=== PATIENT | male | born 1960 | race Caucasian/White ===

== ENCOUNTER → 2016-07-18 | Outpatient (CLI) | payer OTHER, MEDICARE | LOC: PCVCCLINIC 14:30 | PROVIDERS: ATTEND Internal Medicine | DX: I48.0 Paroxysmal atrial fibrillation (principal); I10 Essential (primary) hypertension; E78.5 Hyperlipidemia, unspecified | CPT/HCPCS: 80061; 93005; G0463 ==

== ENCOUNTER → 2017-01-30 | Outpatient (CLI) | payer OTHER | END | disposition home or self-care (01) | LOC: PCVCCLINIC 11:50 | PROVIDERS: ATTEND Internal Medicine | DX: I45.89 Other specified conduction disorders (principal); I47.1 Supraventricular tachycardia; I48.0 Paroxysmal atrial fibrillation; I10 Essential (primary) hypertension; E78.2 Mixed hyperlipidemia; Z79.82 Long term (current) use of aspirin; Z79.899 Other long term (current) drug therapy | CPT/HCPCS: 80061; 93005; G0463 ==

== ENCOUNTER → 2017-06-01 | Outpatient (CLI) | payer OTHER, MEDICARE ==
--- NOTE | 2017-06-01 16:17 | PCVCIMAG ---
APPROVED REPORT Study performed: 06/01/2017 13:57:41 EXAM: Comprehensive 2D, Doppler, and color-flow Echocardiogram Patient Location: Echo lab Room #: 2Status: routine BSA: 2.33 HR: 61 bpmBP: 150/102 mmHg Rhythm: NSR Other Information Study Quality: Technically Difficult Risk Factors: Cardiac Risk Factors: HTN, Hyperlipidemia Indications Abnormal ECG Hypertension/HDD HISTORY OF A FIB WITH ABLATION X 3, PSVT 2D Dimensions IVSd: 8.00 (7-11mm)LVOT Diam: 21.33 (18-24mm) LVDd: 50.57 mm PWd: 9.01 (7-11mm)Ascending Ao: 38.15 (22-36mm) LVDs: 29.68 (25-40mm) Left Atrium: 43.79 (27-40mm) Aortic Root: 34.81 mm LV Single Plane 4CH: 57.36 % LV Single Plane 2CH: 65.45 %[place]'s LVEF: 61.40 % Biplane EF: 61.3 % Volumes Left Atrial Volume (Systole) Single Plane 4CH: 38.30 mLSingle Plane 2CH: 42.81 mL Biplane LA Volume: 44.00 mLLA ESV Index: 19.00 mL/m2 Aortic Valve AoV Peak Ace.: 1.47 m/s AO Peak Gr.: 8.74 mmHgLVOT Max P.77 mmHg LVOT Max V: 1.22 m/s TANMAY Vmax: 2.97 cm2 Mitral Valve E/A Ratio: 3.4 MV Decel. Time: 229.44 ms MV E Max Ace.: 0.96 m/s MV A Ace.: 0.28 m/s IVRT: 65.74 ms TDI E/Lateral E': 8.00E/Medial E': 12.00 Medial E' Ace.: 0.08 m/s Lateral E' Ace.: 0.12 m/s Pulmonary Valve PV Peak Ace.: 0.87 m/sPV Peak Gr.: 3.03 mmHg Pulmonary Vein P Vein S: 0.31 m/sP Vein A: 0.27 m/s P Vein D: 0.86 m/sP Vein A Dur.: 83.0 msec P Vein S/D Ratio: 0.36 Tricuspid Valve TR Peak Ace.: 1.77 m/s TR Peak Gr.: 12.49 mmHg TV Vmax: 0.63 m/sPA Pressure: 19.00 mmHg Left Ventricle The left ventricle is normal size. There is normal LV segmental wall motion. There is normal left ventricular wall thickness. Left ventricular systolic function is normal. The left ventricular ejection fraction is within the normal range. LVEF is 60-65%. The left ventricular diastolic function is normal. Right Ventricle The right ventricle is normal size. The right ventricular systolic function is normal. Atria Left atrium is mildly dilated. The right atrium size is normal. Aortic Valve The aortic valve is normal in structure. No aortic regurgitation is present. There is no aortic valvular stenosis. Mitral Valve The mitral valve is normal in structure. There is no mitral valve regurgitation noted. No evidence of mitral valve stenosis. Tricuspid Valve The tricuspid valve is normal in structure. Trace to mild tricuspid regurgitation with a PA pressure of 20mmHg Pulmonic Valve The pulmonary valve is normal in structure. There is no pulmonic valvular regurgitation. Great Vessels The aortic root is normal in size. The ascending aorta is normal in size. IVC is normal in size and collapses with >50% inspiration Pericardium There is no pericardial effusion. There is no pleural effusion. <Conclusion> Left ventricular systolic function is normal. There is normal LV segmental wall motion. LVEF 60-65%. The aortic valve is normal in structure. No aortic valvular stenosis or insufficiency. The mitral valve is normal in structure. No mitral valve regurgitation noted. Pulmonary artery artery pressure of 20mmHg There is no pericardial effusion.
== END | disposition home or self-care (01) ==
LOC: PCVCIMAG 14:05
PROVIDERS: ATTEND Internal Medicine
DX: I48.0 Paroxysmal atrial fibrillation (principal); I47.1 Supraventricular tachycardia; I10 Essential (primary) hypertension; E78.2 Mixed hyperlipidemia; R94.31 Abnormal electrocardiogram [ECG] [EKG]; Z79.899 Other long term (current) drug therapy; Z79.82 Long term (current) use of aspirin
CPT/HCPCS: 80061; 93005; 93306; G0463

== ENCOUNTER 2017-08-16 08:16 | Emergency (ER) | payer OTHER, MEDICARE ==
[2017-08-16] MEDS: DEXAMETHASONE SOD PHOS 20 MG/5 ML VIAL. IM ×2 (08:44)
== END 2017-08-16 09:06 | disposition home or self-care (01) ==
LOC: ER 08:16
DX: M54.42 Lumbago with sciatica, left side (principal); I10 Essential (primary) hypertension; I48.91 Unspecified atrial fibrillation
CPT/HCPCS: 96372; 99284-25; J1100; J3360

== ENCOUNTER 2017-08-24 08:15 | Emergency (ER) | payer OTHER, MEDICARE ==
[2017-08-24] MEDS: IV NORMAL SALINE 500ML BAG 500 ML IV ×4 (09:00→10:06)
[2017-08-24 09:10] LABS: ADD MAN DIFF? NO
[2017-08-24 09:15] LABS: BASO # 0.1 x10^3/uL (0.0-0.2); BASO % 1 % (0-3); EOS # 0.2 x10^3/uL (0.0-0.7); EOS % 2 % (0-3); HEMATOCRIT 44.4 % (39.0-53.0); HEMOGLOBIN 14.8 g/dL (13.0-17.5); LYMPH # 2.5 x10^3/uL (1.0-4.8); LYMPH % 24 % (24-48); MEAN CORPUSCULAR HEMOGLOBIN 28 pg (25-35); MEAN CORPUSCULAR HGB CONC 33 g/dL (31-37); MEAN CORPUSCULAR VOLUME 85 fL (79-100); MONO % 9 % (0-9); NEUT # 6.7 x10^3uL (1.8-7.7); NEUT % 64 % (31-73); PLATELET COUNT 419 x10^3/uL (140-400); RED BLOOD COUNT 5.26 x10^6/uL (4.30-5.70); RED CELL DISTRIBUTION WIDTH 15.1 % (11.5-14.5); WHITE BLOOD COUNT 10.4 x10^3/uL (4.0-11.0)
[2017-08-24 09:38] LABS: ANION GAP 8 (6-14); BLOOD UREA NITROGEN 23 mg/dL (8-26); CALCIUM 8.9 mg/dL (8.5-10.1); CARBON DIOXIDE 30 mmol/L (21-32); CHLORIDE 102 mmol/L (98-107); CREATININE 1.1 mg/dL (0.7-1.3); GLUCOSE 95 mg/dL (70-99); POTASSIUM 4.4 mmol/L (3.5-5.1); SODIUM 140 mmol/L (136-145)
[2017-08-24 09:44] LABS: ALBUMIN 3.5 g/dL (3.4-5.0); ALK PHOS 105 U/L (46-116); ALT (SGPT) 26 U/L (16-63); AST (SGOT) 21 U/L (15-37); DIRECT BILIRUBIN 0.1 mg/dL (0.0-0.2); LIPASE 91 U/L (73-393); TOTAL BILIRUBIN 0.3 mg/dL (0.2-1.0); TOTAL PROTEIN 6.9 g/dL (6.4-8.2)
[2017-08-24 09:45] LABS: TROPONINI < 0.017 ng/mL (0.000-0.055)
[2017-08-24 09:47] LABS: INFLUENZA A PATIENT NEGATIVE (NEGATIVE); INFLUENZA B PATIENT NEGATIVE (NEGATIVE); OBC FLU VALID
== END 2017-08-24 10:53 | disposition home or self-care (01) ==
LOC: ER 08:15
DX: J06.9 Acute upper respiratory infection, unspecified (principal); I49.1 Atrial premature depolarization; I10 Essential (primary) hypertension; R00.0 Tachycardia, unspecified; I48.91 Unspecified atrial fibrillation
CPT/HCPCS: 36415; 71045; 80048; 80076; 83690; 84484; 85025; 87804; 87804-59; 93005; 96360; 99285-25; J7040

== ENCOUNTER → 2017-09-14 | Outpatient (CLI) | payer OTHER, MEDICARE ==
[2017-09-14 12:50] LABS: CHOLESTEROL 163 mg/dL (0-200); HDLC 39 mg/dL (40-60); LDLC 108 mg/dL (0-100); NON-HDL CHOLESTEROL 124 mg/dL (0-129); TRIGLYCERIDES 82 mg/dL (0-150); VLDLC 16 mg/dL (0-40)
[2017-09-14 12:50] LABS: MAGNESIUM 1.8 mg/dL (1.8-2.4)
[2017-09-14 12:51] LABS: CHOLESTEROL/HDL RATIO 4.2
[2017-09-14 12:58] LABS: THYROID STIM HORMONE (TSH) 6.907 uIU/mL (0.358-3.74)
[2017-09-14 13:05] LABS: PROSTATE SPECIFIC ANTIGEN 0.76 ng/mL (0.00-4.00)
== END | disposition home or self-care (01) ==
LOC: LAB 12:22
DX: Z12.5 Encounter for screening for malignant neoplasm of prostate (principal); Z13.220 Encounter for screening for lipoid disorders; I48.0 Paroxysmal atrial fibrillation; R94.6 Abnormal results of thyroid function studies
CPT/HCPCS: 36415; 80061; 83735; 84439; 84443; G0103

== ENCOUNTER → 2017-12-07 | Outpatient (CLI) | payer BC, MEDICARE | END | disposition home or self-care (01) | LOC: PCVCCLINIC 13:50 | DX: I10 Essential (primary) hypertension (principal); I48.0 Paroxysmal atrial fibrillation; I47.1 Supraventricular tachycardia; E78.5 Hyperlipidemia, unspecified; Z79.82 Long term (current) use of aspirin; Z79.899 Other long term (current) drug therapy | CPT/HCPCS: 93005; G0463 ==

== ENCOUNTER → 2018-05-16 | Outpatient (CLI) | payer OTHER ==
[2017-08-24 10:48] VITALS: BP 132/91
[~2018-05-16] MED LIST: AZIT250T6 PO; CARI350T PO; DIAZ5TAB PO; IBUP-1027 PO
--- NOTE | 2018-05-16 16:58 | PCVCIMAG ---
APPROVED REPORT Study performed: 05/16/2018 13:15:22 Exam: Stress Echocardiogram Indication: Paroxysmal A-Fib, PSVT Patient Location: Echo lab Stress Nurse: Citlali Johnston RN Status: routine Ht: 6 ft 4 in HR: 68 bpm BP: 134/94 mmHg Rhythm: NSR, Incomplete RBBB Medical History Medical History: HTN, Hyperlipidemia Procedure The patient underwent an Exercise Stress Test using the Vish Protocol. Blood pressure, heart rate, and EKG were monitored. An Echocardiogram was performed by mine technician in four stages in quad fashion. At peak stress, four selected images were obtained and placed side by side with resting images for comparison. Stress Test Details Stress Test: Exercise stress testing was performed using a Vish protocol. HR Resting HR: 68 bpmMax Heart Rate (APMHR): 162 bpm Max HR Achieved: 139 bpmTarget HR (85% APMHR): 137 bpm % of APMHR: 85 Recovery HR: 81 bpm HR response to stress: Normal HR response to stress BP Resting BP: 134/94 mmHg Max BP: 164/80 mmHg Recovery BP: 142/84 mmHg ECG Resting ECG: Sinus Rhythm, Incomplete RBBB Stress ECG: Sinus Rhythm ST Change: Normal Maximum ST Deviation: 0 mm Arrhythmia: VPC's Recovery ECG: Sinus Rhythm, Incomplete RBBB Recovery ST Change: Normal Recovery ST Deviation: 0 mm Recovery Arrhythmia: None Clinical Reason for Termination: Maximal effort Exercise duration: 9 min 02 sec Highest Stage Achieved: Stage 3: 3.4 mph at 14% grade. Exercise capacity: 10.40 METs Overall Exercise Capacity for Age: Good Angina Score: None Stage 3 was held due to patient's inabilty to go higher or faster secondary to back laminectomy (2012) and gait instability. Maximum heart rate was 85%. Stress ECG Conclusion ECG: Non-ischemic Clinical: Non-ischemic Ceballos Treadmill Score is 9.0 which is Low risk. Pre-Stress Echo The resting Echocardiogram showed normal left ventricular contractility with an estimated Ejection Fraction of about >55%. Normal wall motion in all segments on baseline images. Post-Stress Echo The stress Echocardiogram showed normal left ventricular contractility with an estimated Ejection Fraction of about 60-65%. Normal augmentation of wall motion in all segments on post stress images. Clinical No clinical or ECG evidence for ischemia. Conclusion Clinical Response: Non-ischemic Exercise Capacity: Average Stress ECG Response: Non-ischemic Stress Echo Images: Non-ischemic The left ventricle is normal in size and wall thickness in both the rest and stress images. Irregular bordered echodense 1.6cm mass at LV apex Normal stress echocardiogram with maximal exercise stress. Other Information Study Quality: Adequate <Conclusion> The left ventricle is normal in size and wall thickness in both the rest and stress images. Irregular bordered echodense 1.6cm mass at LV apex Normal stress echocardiogram with maximal exercise stress.
== END | disposition home or self-care (01) ==
LOC: PCVCIMAG 14:35
PROVIDERS: ATTEND Internal Medicine
DX: I10 Essential (primary) hypertension (principal); I48.0 Paroxysmal atrial fibrillation; I47.1 Supraventricular tachycardia; I15.9 Secondary hypertension, unspecified; E78.5 Hyperlipidemia, unspecified
CPT/HCPCS: 93325; 93351

== ENCOUNTER → 2018-05-17 | Outpatient (CLI) | payer OTHER ==
[2017-08-24 10:48] VITALS: BP 132/91
[2018-05-17 17:15] LABS: FREE T4 0.98 ng/dL (0.76-1.46); THYROID STIM HORMONE (TSH) 5.035 uIU/mL (0.358-3.74)
== END | disposition home or self-care (01) ==
LOC: LAB 12:24
PROVIDERS: ATTEND Family Medicine
DX: R94.6 Abnormal results of thyroid function studies (principal)
CPT/HCPCS: 36415; 84439; 84443

== ENCOUNTER → 2018-05-22 | Outpatient (CLI) | payer OTHER, MEDICARE ==
[2017-08-24 10:48] VITALS: BP 132/91
--- NOTE | 2018-05-22 17:41 | PCVCIMAG ---
APPROVED REPORT Study performed: 05/22/2018 15:23:52 EXAM: Comprehensive 2D, Doppler, and color-flow Echocardiogram Patient Location: Echo lab Room #: 2Status: routine BSA: 2.34 HR: 73 bpm Rhythm: NSR Other Information Study Quality: Good Risk Factors: Cardiac Risk Factors: HTN, Hyperlipidemia Indications Atrial Fibrillation Dyspnea Hypertension/HDD 2D Dimensions IVSd: 9.89 (7-11mm)LVOT Diam: 22.26 (18-24mm) LVDd: 50.25 mm PWd: 9.89 (7-11mm)Ascending Ao: 38.44 (22-36mm) LVDs: 31.55 (25-40mm) Left Atrium: 37.82 (27-40mm) Aortic Root: 39.09 mm LV Single Plane 4CH: 60.10 % LV Single Plane 2CH: 70.48 % Biplane EF: 65.1 % Volumes Left Atrial Volume (Systole) Single Plane 4CH: 53.41 mLSingle Plane 2CH: 54.19 mL Biplane LA Volume: 57.00 mLLA ESV Index: 24.00 mL/m2 Aortic Valve AoV Peak Ace.: 1.78 m/s AO Peak Gr.: 12.74 mmHgLVOT Max P.28 mmHg LVOT Max V: 0.91 m/s TANMAY Vmax: 1.97 cm2 Mitral Valve E/A Ratio: 4.1 MV Decel. Time: 140.25 ms MV E Max Ace.: 1.12 m/s MV A Ace.: 0.27 m/s IVRT: 62.28 ms TDI E/Lateral E': 8.62E/Medial E': 11.20 Medial E' Ace.: 0.10 m/s Lateral E' Ace.: 0.13 m/s Pulmonary Valve PV Peak Ace.: 1.13 m/sPV Peak Gr.: 5.09 mmHg Pulmonary Vein P Vein S: 0.27 m/sP Vein A: 0.23 m/s P Vein D: 0.83 m/sP Vein A Dur.: 86.5 msec P Vein S/D Ratio: 0.33 Tricuspid Valve TR Peak Ace.: 1.25 m/s TR Peak Gr.: 6.27 mmHg TV Vmax: 0.77 m/sPA Pressure: 13.00 mmHg Left Ventricle The left ventricle is normal size. There is normal LV segmental wall motion. There is normal left ventricular wall thickness. The left ventricular systolic function is normal. The left ventricular ejection fraction is within the normal range. A small echogenic mass is seen on the distal septal wall near the apex. Approximately 1.6 x 2 cm, with apparent contractile function. Possible apically displaced, muscular false tendon. LVEF is 60-65%. The left ventricular diastolic function is normal. Right Ventricle The right ventricle is normal size. The right ventricular systolic function is normal. Atria The left atrium size is normal. The right atrium size is normal. Aortic Valve The aortic valve is normal in structure. No aortic regurgitation is present. There is no aortic valvular stenosis. Mitral Valve The mitral valve is normal in structure. There is no mitral valve regurgitation noted. No evidence of mitral valve stenosis. Tricuspid Valve The tricuspid valve is normal in structure. There is no tricuspid valve regurgitation noted. Pulmonic Valve The pulmonary valve is normal in structure. There is no pulmonic valvular regurgitation. Great Vessels The aortic root is normal in size. The ascending aorta is normal in size. IVC is normal in size and collapses >50% with inspiration. Pericardium There is no pericardial effusion There is no pleural effusion. <Conclusion> The left ventricular systolic function is normal. There is normal LV segmental wall motion. EF 65% A small echogenic mass is seen on the distal septal wall near the apex. Approximately 1.6 x 2 cm, with apparent contractile function. Possible apically displaced, muscular false tendon.. The aortic valve is normal in structure. No aortic regurgitation or stenosis The mitral valve is normal in structure. No mitral insufficiency There is no pericardial effusion
== END | disposition home or self-care (01) ==
LOC: PCVCIMAG 15:02
PROVIDERS: ATTEND Internal Medicine
DX: I48.0 Paroxysmal atrial fibrillation (principal)
CPT/HCPCS: 93306

== ENCOUNTER → 2018-09-30 | Outpatient (CLI) | payer OTHER, MEDICARE ==
[2017-08-24 10:48] VITALS: BP 132/91
[~2018-09-30] MED LIST changes: +IBUP-1060 PO
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
== END | disposition home or self-care (01) ==
LOC: MRI 10:34
PROVIDERS: ATTEND Orthopaedic Surgery Hand Surgery
DX: S63.112A Subluxation of metacarpophalangeal joint of left thumb, initial encounter (principal); S62.292A Other fracture of first metacarpal bone, left hand, initial encounter for closed fracture; R60.0 Localized edema; X58.XXXA Exposure to other specified factors, initial encounter; Y93.89 Activity, other specified; Y92.89 Other specified places as the place of occurrence of the external cause; Y99.8 Other external cause status
CPT/HCPCS: 73218

== ENCOUNTER 2018-10-28 20:47 | Emergency (ER) | payer OTHER, MEDICARE ==
[2017-08-24 10:48] VITALS: BP 132/91
[~2018-10-28 20:47] MED LIST changes: -IBUP-1060 PO
[2018-10-29] MEDS ORDERED: IBUP-1060 PO (08:42)
== END 2018-10-28 20:50 | disposition left against medical advice (07) ==
LOC: ER 20:47
DX: S59.902A Unspecified injury of left elbow, initial encounter (principal); Z53.21 Procedure and treatment not carried out due to patient leaving prior to being seen by health care provider; W18.39XA Other fall on same level, initial encounter; Y93.89 Activity, other specified; Y92.89 Other specified places as the place of occurrence of the external cause; Y99.8 Other external cause status

== ENCOUNTER 2018-10-29 07:08 | Emergency (ER) | payer OTHER, MEDICARE ==
[~2018-10-29] VITALS: Ht 193 cm; Wt 102.1 kg
[2018-10-29 07:13] VITALS: BP 155/92
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
[2018-10-29] MEDS ORDERED: IBUP-1060 PO (08:42)
== END 2018-10-29 08:45 | disposition home or self-care (01) ==
LOC: ER 07:08
DX: S52.125A Nondisplaced fracture of head of left radius, initial encounter for closed fracture (principal); I48.91 Unspecified atrial fibrillation; I10 Essential (primary) hypertension; Z88.8 Allergy status to other drugs, medicaments and biological substances; X50.9XXA Other and unspecified overexertion or strenuous movements or postures, initial encounter; Y93.89 Activity, other specified; Y92.89 Other specified places as the place of occurrence of the external cause; Y99.8 Other external cause status
CPT/HCPCS: 73080; 99284

== ENCOUNTER → 2018-11-01 | Outpatient (CLI) | payer OTHER, MEDICARE ==
[2018-10-29 07:13] VITALS: BP 155/92
[~2018-11-01] MED LIST changes: +IBUP-1060 PO
[2018-11-01 14:09] LABS: CREATININE 1.1 mg/dL (0.7-1.3); GFR 68.8; POTASSIUM 3.8 mmol/L (3.5-5.1)
== END | disposition home or self-care (01) ==
LOC: LAB 13:39
PROVIDERS: ATTEND Orthopaedic Surgery Hand Surgery
DX: I10 Essential (primary) hypertension (principal); E87.79 Other fluid overload; L70.9 Acne, unspecified; E87.70 Fluid overload, unspecified; I48.91 Unspecified atrial fibrillation; D53.9 Nutritional anemia, unspecified; I25.2 Old myocardial infarction; A15.0 Tuberculosis of lung; Z87.891 Personal history of nicotine dependence; Z79.01 Long term (current) use of anticoagulants
CPT/HCPCS: 36415; 80048

== ENCOUNTER → 2018-11-15 | Outpatient (CLI) | payer OTHER, MEDICARE ==
[2018-10-29 07:13] VITALS: BP 155/92
[~2018-11-15] MED LIST changes: +PERFLUTREN PROTEIN-A MICROSPHR 0.22 MG/ML 3 ML VIAL. IV ONE
--- NOTE | 2018-11-15 16:27 | PCVCIMAG ---
APPROVED REPORT Study performed: 11/15/2018 14:10:31 EXAM: Limited 2D Echocardiogram with contrast Patient Location: Echo lab Status: routine BSA: 2.34 HR: 76 bpmBP: 122/66 mmHg Rhythm: NSR Other Information Study Quality: Adequate Risk Factors: Cardiac Risk Factors: HTN, Hyperlipidemia Indications Small apical septal mass Echo Enhancing Agent Indication: Cardiac Mass Agent(s) / Amount(s) Used: Optison 5 cc 2D Dimensions LV Single Plane 4CH: 54.84 % LV Single Plane 2CH: 56.22 % Biplane EF: 57.6 % Left Ventricle There is normal LV segmental wall motion. The left ventricular systolic function is normal. The left ventricular ejection fraction is within the normal range. LVEF is >55%. Approximately 2 cm oval, densely echogenic mass at the left ventricular apex which appeared to have contractile function, possibly representing and apically displaced muscular false tendon. Aortic Valve The aortic valve is normal in structure. Mitral Valve The mitral valve is normal in structure. Tricuspid Valve The tricuspid valve is normal in structure. Great Vessels The aortic root is normal in size. Pericardium There is no pericardial effusion. <Conclusion> The left ventricular systolic function is normal. There is normal LV segmental wall motion. LVEF is >55%. Approximately 2 cm oval, densely echogenic mass at the left ventricular apex which appeared to have contractile function, possibly representing and apically displaced muscular false tendon. There is no pericardial effusion. Similar in appearance to a study dated May 2018
== END | disposition home or self-care (01) ==
LOC: PCVCIMAG 14:08
PROVIDERS: ATTEND Internal Medicine
DX: I51.89 Other ill-defined heart diseases (principal); I10 Essential (primary) hypertension; E78.5 Hyperlipidemia, unspecified
CPT/HCPCS: C8924; Q9956

== ENCOUNTER → 2020-03-17 | Outpatient (CLI) | payer OTHER, MEDICARE ==
[~2020-03-17] MED LIST changes: -PERFLUTREN PROTEIN-A MICROSPHR 0.22 MG/ML 3 ML VIAL. IV ONE
[2020-03-17 08:01] LABS: BASO % 1 % (0-3); EOS # 0.1 x10^3/uL (0.0-0.7); EOS % 2 % (0-3); LYMPH # 2.1 x10^3/uL (1.0-4.8); LYMPH % 31 % (24-48); MEAN CORPUSCULAR HEMOGLOBIN 30 pg (25-35); MEAN CORPUSCULAR HGB CONC 34 g/dL (31-37); MEAN CORPUSCULAR VOLUME 88 fL (79-100); MONO # 0.6 x10^3/uL (0.0-1.1); MONO % 9 % (0-9); NEUT # 3.8 x10^3/uL (1.8-7.7); NEUT % 57 % (31-73); PLATELET COUNT 336 x10^3/uL (140-400); RED BLOOD COUNT 5.01 x10^6/uL (4.30-5.70); RED CELL DISTRIBUTION WIDTH 14.7 % (11.5-14.5); WHITE BLOOD COUNT 6.7 x10^3/uL (4.0-11.0)
[2020-03-17 08:21] LABS: ALBUMIN 3.6 g/dL (3.4-5.0); ALBUMIN/GLOBULIN RATIO 0.9 (1.0-1.7); CALCIUM 8.5 mg/dL (8.5-10.1); CREATININE 1.1 mg/dL (0.7-1.3); GFR 68.5; POTASSIUM 3.6 mmol/L (3.5-5.1); TOTAL BILIRUBIN 0.6 mg/dL (0.2-1.0); TOTAL PROTEIN 7.5 g/dL (6.4-8.2)
[2020-03-17 08:23] LABS: CHOLESTEROL/HDL RATIO 3.4
[2020-03-17 08:30] LABS: FREE T4 0.92 ng/dL (0.76-1.46); THYROID STIM HORMONE (TSH) 6.791 uIU/mL (0.358-3.74)
[2020-03-17 18:09] LABS: TESTOSTERONE TOTAL 412 ng/dL (264-916)
== END | disposition home or self-care (01) ==
LOC: LAB 07:19
PROVIDERS: ATTEND Family Medicine
DX: Z12.5 Encounter for screening for malignant neoplasm of prostate (principal); Z13.220 Encounter for screening for lipoid disorders; I10 Essential (primary) hypertension; R53.83 Other fatigue; R94.6 Abnormal results of thyroid function studies
CPT/HCPCS: 36415; 80053; 80061; 84403; 84439; 84443; 85025; G0103

== ENCOUNTER → 2020-03-27 | Outpatient (CLI) | payer OTHER | LOC: LAB 10:56 | PROVIDERS: ATTEND Internal Medicine Pulmonary Disease | DX: Z20.828 Contact with and (suspected) exposure to other viral communicable diseases (principal) | CPT/HCPCS: U0003-CS ==

== ENCOUNTER → 2020-06-09 | Outpatient (CLI) | payer OTHER, MEDICARE ==
[~2020-06-09] MED LIST changes: +ASPI-630 PO; +AZIL40TA PO; +BUPIVACAINE MPF 0.25% 10 ML VIAL. ONE; +CHLO25TA10 PO; +EVOL140S2 SQ; +IOHEXOL 180 MG/ML 10 ML VIAL. ONE; +MAGN500C10 PO; +MECO10005 PO; +POTA10TA12 PO; +methylPREDNISolone ACETATE 40 MG/ML VIAL. ONE; +methylPREDNISolone ACETATE 80 MG/ML VIAL. ONE
--- NOTE | 2020-06-09 13:58 | PDOC1 ---
INITIAL PAIN CONSULT DATE OF SERVICE: DOS: DATE: 06/09/20 TIME: 13:50 CHIEF COMPLAINT: Chief Complaint: Low back and left lower extremity pain HISTORY OF PRESENT ILLNESS: 60-year-old male presents with history of pain low back into the left lower extremity most severely in the low back itself worse with walking standing changing positions. Patient ports pain is in the low back more on the left than the right but present bilaterally with some weakness in the left hip and leg with walking standing changing positions. Patient ports some pain in the left buttock but not further into the left lower extremity. Patient scribes pain is constant throbbing sore and aching in the low back itself and some numbness in the left buttock worse with activity standing walking changing positions can awaken her from sleep at night but not most nights allergy when he is rolling over from one side to the other mainly to his left side patient ports not effective bowel bladder control but does affect his body walk he is limping with a significant favoring of the left lower extremity. Patient reports he has had injections in the past as well chiropractic treatment and exercise which he is currently which helps the pain but only temporarily. Patient rates his disability rating 0-10 10 being the worst is a 0 in all categories except for recreation social activity occupation which are 5 on a scale of 10. Patient reports occasional paresthesia in the bilateral feet as well. Patient reports no loss of motor function no bowel or bladder incontinence patient has been taking Soma as well as using Aspercreme and pain patches which were not significantly decreasing the pain. PAST MEDICAL HISTORY: PMH: Hypertension, atrial fibrillation status post ablation, arthritis PREVIOUS SURGERIES: Past Surgical Hx: [place] teeth extraction; tonsillectomy, laminectomy 2012 CURRENT MEDICATIONS: Current Meds: Active Scripts Medications Dose Route/Sig Max Daily Dose Days Date Category Ibuprofen 800 Mg Tablet 800 Mg PO PRN Q8HRS PRN 10/29/18 Rx Azithromycin Tablet (Azithromycin) 250 Mg Tablet 1 Pkg PO UD 08/24/17 Rx Soma (Carisoprodol) 350 Mg Tablet 1 Tab PO BID 08/16/17 Rx Valium (Diazepam) 5 Mg Tablet 5 Mg PO TID 5 08/16/17 Rx Ibuprofen 400 Mg Tablet 400 Mg PO PRN Q6HRS PRN 30 08/16/17 Rx ALLERGIES; Allergies: Coded Allergies: carisoprodol (Verified Adverse Reaction, Intermediate, 08/24/17) hiccups FAMILY HISTORY: Family Hx: No major medical problems or conditions SOCIAL HISTORY: Social Hx: Patient drinks alcohol about 2 ounces a week on average does not smoke does not use any illegal illicit recreational drugs is lives with his spouse lives locally in [place] and 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 Extraocular movements are intact and symmetrical. Oral cavity: Mucous membranes moist and pink. NECK: Shows anterior throat supple without palpable lymphadenopathy noted. Swallow reflex symmetrical. CHEST: Shows normal on inspection. Breath sounds are clear bilaterally. HEART: Shows S1, S2 clear. No murmurs auscultated. ABDOMEN: Soft, nontender, nondistended. No palpable organomegaly is noted. BACK: Shows spine grossly in the midline. Normal-appearing cervical lordotic curvature. There is slightly increased thoracic kyphosis, some minor flattening of the lumbar lordotic curvature with well-healed surgical scar in the midline. Lumbar paraspinous muscles show symmetrical on inspection, on palpation shows some moderate tenderness diffusely throughout the upper, middle and lower distribution of the paraspinous muscles bilaterally, but without specific trigger points, without radiation of pain. The patient has good rotational motion of the lumbar spine, both laterally as well as extension and flexion without significant difficulty. No tenderness over the spinous processes, sa rosa or sacroiliac regions. EXTREMITIES: Lower extremities show deep tendon reflexes 2+ in the patellar and tendo calcaneus tendons. Motor exam is 5 on a scale of 5 with right dorsiflexion, extension, quadriceps and hamstring flexion and 5/5 on the left. Peripheral pulses are 1+ posterior tibial. No peripheral edema is noted bilaterally. Lower extremities are warm and dry to touch, equal in color and appearance. SKIN: Shows warm and dry, good turgor. No edema. No sores, rashes or bruising throughout. IMPRESSION: Impression: 60-year-old male with history of low back pain, left greater than right Arthritis Hypertension Atrial fibrillation status post ablation History of lumbar laminectomy 2012 Plan: Options were discussed with the patient including conservative medical management is continued physical therapies interventional techniques he like to pursue interventional techniques. We discussed bilateral lumbar facet joint injections using description as well as anatomical models to describe the procedure. Patient understands wished to proceed. Risks were discussed including but not limited to: Bleeding, infection, possibility of epidural hematoma and subsequent neurological compromise, dural puncture, headaches, spinal cord and/or nerve damage, side effects of steroid medication, and poor results regarding pain control. Patient understands wished to proceed. Patient will return to the clinic in approximately 2 weeks for follow-up, was counseled as return appointment activity level and side effects to be aware of. Under sterile prep and drape using C-arm fluoroscopic guidance AP and lateral an d oblique views, bilateral L4-5 and L5-S1 facet joint injections were performed, medications injected: 120 mg Depo-Medrol +4 cc 0.25% bupivacaine +2 cc contrast. Condition at discharge stable patient tolerated the procedure well and no complications. DANNY VAUGHN MD Jun 09, 2020 13:58
== END | disposition home or self-care (01) ==
LOC: PNCL 12:56
PROVIDERS: ATTEND Anesthesiology
DX: M54.5 Low back pain (principal); M79.605 Pain in left leg; I10 Essential (primary) hypertension; I48.91 Unspecified atrial fibrillation; M19.90 Unspecified osteoarthritis, unspecified site; Z79.899 Other long term (current) drug therapy; Z79.82 Long term (current) use of aspirin; Z98.890 Other specified postprocedural states; Z88.8 Allergy status to other drugs, medicaments and biological substances
CPT/HCPCS: 64493; 64494; J1030; J1040; J3490; Q9965; 64635; 64636

== ENCOUNTER → 2020-10-12 | Outpatient (CLI) | payer OTHER, MEDICARE ==
--- NOTE | 2020-10-12 15:36 | PDOC4 ---
PROCEDURE Procedure Patient was consented for bilateral L4-5 and L5-S1 facet joint injections. Risks were discussed including but not limited to: Bleeding, infection, possibility of epidural hematoma and subsequent neurological compromise, dural puncture, headaches, spinal cord and/or nerve damage, side effects of steroid medication, and poor results regarding pain control. Patient understands and wished to proceed. Under sterile prep and drape using C-arm fluoroscopic guidance AP and lateral and oblique views, bilateral L4-5 and L5-S1 facet joint injections were performed, medications injected: 120 mg Depo-Medrol +4 cc 0.25% bupivacaine +2 cc contrast. Condition at discharge stable patient tolerated the procedure well and no complications. DANNY VAUGHN MD Oct 12, 2020 15:36
--- NOTE | 2020-10-12 15:36 | PDOC ---
Progress Note - Pain Clinic Date of Service: DOS: DATE: 10/12/20 TIME: 15:32 Diagnosis: Dx: Lumbar degenerative disc disease with lumbar postlaminectomy syndrome and lumbar and lumbosacral spondylosis History or Present Illness: HPI: 60-year-old male returns to follow-up status post lumbar facet joint injections L4-5 and L5-S1 bilaterally last seen June 09, 2020. Patient which did very well near 100% improvement for 4 months were close to that the pain returning now over the past few weeks in the low back itself without radiation into the lower extremities. Patient reports its aching and radiating across the low back and in the low back itself but not into the legs patient reports is an 8 on scale 10 is worse over the past week 7 on average 3 at its least is a 7 today. Patient ports is worse with walking standing changing positions getting up from seated position extension lumbar spine axial loading of the low back and has been awakened from sleep now for about every 3 hours over the past week or so. Patient reports prior to that he was doing much better with distance walking and household activities work activities travel with greater ease and comfort as well. Patient reports no new motor or sensory deficits no new bowel or bladder incontinence or other complaints. Physical Exam: VS: Blood pressure is 129/60 pulse 74 respirations 18 temperature 98.1 F height is 6 foot 4 inches weight is 217 pounds PE: PHYSICAL EXAMINATION: GENERAL: The patient is awake, alert, oriented, appropriate, very pleasant demeanor HEENT: Shows normocephalic, atraumatic. Extraocular movements are intact and symmetrical. Oral cavity: Mucous membranes moist and pink. NECK: Shows anterior throat supple without palpable lymphadenopathy noted. Swallow reflex symmetrical. CHEST: Shows normal on inspection. Breath sounds are clear bilaterally. HEART: Shows S1, S2 clear. No murmurs auscultated. ABDOMEN: Soft, nontender, nondistended. No palpable organomegaly is noted. No rebound or guarding demonstrated. BACK: Shows spine grossly in the midline. Normal-appearing cervical lordotic curvature. There is slightly increased thoracic kyphosis, some minor flattening of the lumbar lordotic curvature. Well-healed midline surgical scar is noted in the lumbar distribution. Lumbar paraspinous muscles show symmetrical on inspection, on palpation shows some moderate tenderness diffusely throughout the upper, middle and lower distribution of the paraspinous muscles, but without specific trigger points, without radiation of pain. The patient has good rotational motion of the lumbar spine, with lateral rotation with moderate ten derness greater than 10 degrees right and left and equal as well as significant increase in pain with extension lumbar spine greater than 10 degrees forward flexion 45 degrees is performed without significant difficulty or pain reported. No tenderness over the spinous processes, sacrum or sacroiliac regions. EXTREMITIES: Lower extremities show deep tendon reflexes 2+ in the patellar and tendo calcaneus tendons. Motor exam is 5 on a scale of 5 with right dorsiflexion, extension, quadriceps and hamstring flexion and 5/5 on the left. Peripheral pulses are 1+ posterior tibial. No peripheral edema is noted bilaterally. Lower extremities are warm and dry to touch, equal in color and appearance. SKIN: Shows warm and dry, good turgor. No edema. No sores, rashes or bruising throughout. Procedure: Procedure: Options were discussed with the patient. Patient chart reviews his current medication regimen updated current review of systems updated today as well. We will proceed with bilateral L4-5 and L5-S1 facet joint injections today with fluoroscopic guidance. Risks were discussed including but not limited to: Bleeding, infection, possibility of epidural hematoma and subsequent neurological compromise, dural puncture, headaches, spinal cord and/or nerve damage, side effects of steroid medication, and poor results regarding pain control. Patient understands and wished to proceed. She will return to clinic in approximate 2 weeks for follow-up was counseled as to return appointment activity level and side effects to be aware of. Medication Injected: Med Injected: Under sterile prep and drape using C-arm fluoroscopic guidance AP and lateral and oblique views, bilateral L4-5 and L5-S1 facet joint injections were performed, medications injected: 120 mg Depo-Medrol +4 cc 0.25% bupivacaine +2 cc contrast. Condition at discharge stable patient tolerated the procedure well and no complications. Condition at Discharge: Condition at Discharge: Condition at discharge stable, patient alert the procedure well and had no complications. DANNY VAUGHN MD Oct 12, 2020 15:35
== END | disposition home or self-care (01) ==
LOC: PNCL 14:54
PROVIDERS: ATTEND Anesthesiology
DX: M51.36 Other intervertebral disc degeneration, lumbar region (principal); M96.1 Postlaminectomy syndrome, not elsewhere classified; M47.817 Spondylosis without myelopathy or radiculopathy, lumbosacral region; Z79.82 Long term (current) use of aspirin; Z79.899 Other long term (current) drug therapy; Z88.8 Allergy status to other drugs, medicaments and biological substances
CPT/HCPCS: 64493; 64494; J1030; J1040; J3490; Q9965

== ENCOUNTER → 2021-01-31 | Outpatient (CLI) | payer OTHER, MEDICARE ==
--- NOTE | 2021-01-31 16:10 | PDOC ---
Progress Note - Pain Clinic Date of Service: DOS: DATE: 01/31/21 TIME: 16:07 Diagnosis: Dx: Lumbar degenerative disease lumbar postlaminectomy syndrome and lumbar and lumbosacral spondylosis History or Present Illness: HPI: 60-year-old male returns for follow-up status post bilateral L4-5 and L5-S1 facet medial branch blocks. Patient reports 100% improvement after the last injection which was October 12, 2020 lasting for about 3 to 4 months but now the pain is returning in the low back itself bilaterally worse on the right side than the left. Patient reports no new motor or sensory deficits no recent injury worse with walking standing changing positions causing a noticeable limp. Patient reports is an 8 on scale 10 is worst average and least over the past week is an 8 today patient scribes aching and sharp shooting across the low back again worse on the right than left but not into the lower extremity significantly at this time. Patient reports initially was doing much better with work activities household activities recreational activities and travel with greater ease and comfort sleeping better at night but now is beginning to wake him from sleep at least once or twice a night. Patient reports no new bowel or bladder incontinence or other complaints. Physical Exam: VS: Blood pressure is 122/90 pulse 71 respirations 16 temperature 98.2 F PE: PHYSICAL EXAMINATION: GENERAL: The patient is awake, alert, oriented, appropriate, very pleasant in demeanor HEENT: Shows normocephalic, atraumatic. Extraocular movements are intact and symmetrical. NECK: Shows anterior throat supple without palpable lymphadenopathy noted. Swallow reflex symmetrical. CHEST: Shows normal on inspection. Breath sounds are clear bilaterally, no r ales or. HEART: Shows S1, S2 clear. No murmurs auscultated. ABDOMEN: Soft, nontender, nondistended. BACK: Shows spine grossly in the midline. Normal-appearing cervical lordotic curvature. There is slightly increased thoracic kyphosis, some minor flattening of the lumbar lordotic curvature. Lumbar paraspinous muscles show symmetrical on inspection, on palpation shows some moderate tenderness diffusely throughout the upper, middle and lower distribution of the paraspinous muscles, but without specific trigger points, without radiation of pain. The patient has good rotational motion of the lumbar spine, both laterally as well as extension and flexion with moderate tenderness with right lateral rotation greater than 10 degrees as well as extension of lumbar spine with significant tenderness bilaterally left lateral rotation is tender as well but not as significant as rotating to the right and forward flexion 45 degrees is performed without significant difficulty. No tenderness over the spinous processes, sacrum or sacroiliac regions. EXTREMITIES: Lower extremities show deep tendon reflexes 2+ in the patellar and tendo calcaneus tendons. Motor exam is 5 on a scale of 5 with right dorsiflexion, extension, quadriceps and hamstring flexion and 5/5 on the left. Peripheral pulses are 1+ posterior tibial. No peripheral edema is noted bilaterally. Lower extremities are warm and dry to touch, equal in color and appearance. SKIN: Shows warm and dry, good turgor. No edema. No sores, rashes or bruising throughout. Procedure: Procedure: Options were discussed with the patient. Patient's old chart reviewed his current medication regimen updated current review of systems updated today as well. We will proceed with bilateral L4-5 and L5-S1 facet medial branch blocks today with fluoroscopic guidance. Risks were discussed including but not limited to: Bleeding, infection, possibility of epidural hematoma and subsequent neurological compromise, dural puncture, headaches, spinal cord and/or nerve damage, side effects of steroid medication, and poor results regarding pain control. Patient understands and wished to proceed. Patient will return to clinic in approximate 2 weeks for follow-up, was counseled as to return appointment activity level and side effects to be aware of. Medication Injected: Med Injected: Under sterile prep and drape using C-arm fluoroscopic guidance AP and lateral and oblique views, bilateral L4-5 and L5-S1 facet joint MB's injections were performed, using quinke needles with stylette's x4,, medications injected: 120 mg Depo-Medrol +4 cc 0.25% bupivacaine +2 cc contrast. Condition at discharge stable patient tolerated the procedure well and no complications. Condition at Discharge: Condition at Discharge: Condition at discharge stable, patient already the procedure well and had no complications. DANNY VAUGHN MD Jan 31, 2021 16:10
--- NOTE | 2021-01-31 16:11 | PDOC4 ---
Procedure Note: Procedure Note: Patient was consented for lumbar facet medial branch blocks bilaterally with fluoroscopic guidance. Risks were discussed including but not limited to: Bleeding, infection, possibility of epidural hematoma and subsequent neurological compromise, dural puncture, headaches, spinal cord and/or nerve damage, side effects of steroid medication, and poor results regarding pain control. Patient understands and wished to proceed. Under sterile prep and drape using C-arm fluoroscopic guidance AP and lateral and oblique views, bilateral L4-5 and L5-S1 facet joint MB's injections were performed, using quinke needles with stylette's x4,, medications injected: 120 mg Depo-Medrol +4 cc 0.25% bupivacaine +2 cc contrast. Condition at discharge stable patient tolerated the procedure well and no complications. DANNY VAUGHN MD Jan 31, 2021 16:10
== END | disposition home or self-care (01) ==
LOC: PNCL 15:07
PROVIDERS: ATTEND Anesthesiology
DX: M51.36 Other intervertebral disc degeneration, lumbar region (principal); M96.1 Postlaminectomy syndrome, not elsewhere classified; M47.817 Spondylosis without myelopathy or radiculopathy, lumbosacral region; Z79.82 Long term (current) use of aspirin; Z79.899 Other long term (current) drug therapy; Z98.890 Other specified postprocedural states
CPT/HCPCS: 64493; 64494; J1030; J1040; J3490; Q9965

== ENCOUNTER → 2021-06-07 | Outpatient (CLI) | payer OTHER, MEDICARE ==
--- NOTE | 2021-06-07 13:39 | PDOC ---
Progress Note - Pain Clinic Date of Service: DOS: DATE: 06/07/21 TIME: 13:34 Diagnosis: Dx: Lumbar and lumbosacral spondylosis Lumbar radiculopathy with lumbar degenerative disease lumbar postlaminectomy syndrome History or Present Illness: HPI: 61-year-old male returns for follow-up status post bilateral lumbar L4-5 and L5- S1 facet medial branch blocks most recently January [id number] patient did very well near 100 sent improvement for about 4months pain is returning now is less severe but he was having more pain in the low back and some new pain into the upper mid distribution of the lumbar spine which is aching and dull tight and description are off intensity worse with activities although patient reports after the injections he was doing much better with walking doing household activities work activities and less pain with his normal activities daily patient rates his pain now as a 7 on scale 10 is worse over the past week for an average 3 its least is a 4 today. Patient reports no bowel or bladder incontinence no motor deficits. Physical Exam: VS: Blood pressure is 120/92 pulse 74 respirations 18 temperature 97.8 F weight is 230 pounds PE: PHYSICAL EXAMINATION: GENERAL: The patient is awake, alert, oriented, appropriate, very pleasant in demeanor HEENT: Shows normocephalic, atraumatic. Extraocular movements are intact and symmetrical. Oral cavity: Mucous membranes moist and pink. Dentition is intact. NECK: Shows anterior throat supple without palpable lymphadenopathy noted. Swallow reflex symmetrical. CHEST: Shows normal on inspection. Breath sounds are clear bilaterally. HEART: Shows S1, S2 clear. No murmurs auscultated. ABDOMEN: Soft, nontender, nondistended. No palpable organomegaly is noted. BACK: Shows spine grossly in the midline. Normal-appearing cervical lordotic curvature. There is slightly increased thoracic kyphosis, some minor flattening of the lumbar lordotic curvature. Lumbar paraspinous muscles show symmetrical on inspection, on palpation shows some moderate tenderness diffusely throughout the upper, middle and lower distribution of the paraspinous muscles, but without specific trigger points, without radiation of pain. The patient has good rotational motion of the lumbar spine, both laterally as well as extension and flexion with moderate tenderness with extension and axial loading lumbar spine also right left lateral rotation equally tender at greater than 10 degrees rotation forward flexion is performed at 45 degrees without significant pain reported. No tenderness over the spinous processes, sacrum or sacroiliac regions. EXTREMITIES: Lower extremities show deep tendon reflexes 2+ in the patellar and tendo calcaneus tendons. Motor exam is 5 on a scale of 5 with right dorsiflexion, extension, quadriceps and hamstring flexion and 5/5 on the left. Peripheral pulses are 1 posterior tibial. No peripheral edema is noted bilaterally. Lower extremities are warm and dry. SKIN: Shows warm and dry, good turgor. No edema. No sores, rashes or bruising throughout. Procedure: Procedure: Options were discussed with the patient. Patient's old chart was reviewed as his current medication regimen updated current review of systems updated today as well. We will proceed with bilateral L4-5 and L5-S1 facet medial branch blocks today with fluoroscopic guidance. Risks were discussed including but not limited to: Bleeding, infection, possibility of epidural hematoma and subsequent neurological compromise, dural puncture, headaches, spinal cord and/or nerve damage, side effects of steroid medication, and poor results regarding pain control. Patient understands and wished to proceed. Patient will return to clinic in approximately 4 weeks for follow-up, was counseled as return ap pointment, activity level, and side effect to be aware of. Medication Injected: Med Injected: Under sterile prep and drape using C-arm fluoroscopic guidance AP and lateral and oblique views, bilateral L4-5 and L5-S1 facet joint MB's injections were performed, using quinke needles with stylette's x4,, medications injected: 120 mg Depo-Medrol +4 cc 0.25% bupivacaine +2 cc contrast. Condition at discharge stable patient tolerated the procedure well and no complications. Condition at Discharge: Condition at Discharge: Condition at discharge is stable, paced tolerated procedure well had no complications. DANNY VAUGHN MD Jun 07, 2021 13:39
--- NOTE | 2021-06-07 13:40 | PDOC4 ---
Procedure Note: ICD 10 Code: ICD 10 Code: M4 7.16 M4 7.817 Procedure Note: Patient was consented for bilateral L4-5 and L5-S1 medial branch facet blocks with fluoroscopic guidance. Risks were discussed including but not limited to: Bleeding, infection, possibility of epidural hematoma and subsequent neurological compromise, dural puncture, headaches, spinal cord and/or nerve damage, side effects of steroid medication, and poor results regarding pain control. Patient understands and wished to proceed. Under sterile prep and drape using C-arm fluoroscopic guidance AP and lateral and oblique views, bilateral L4-5 and L5-S1 facet joint MB's injections were performed, using quinke needles with stylette's x4,, medications injected: 120 mg Depo-Medrol +4 cc 0.25% bupivacaine +2 cc contrast. Condition at discharge stable patient tolerated the procedure well and no complications. DANNY VAUGHN MD Jun 07, 2021 13:40
== END | disposition home or self-care (01) ==
LOC: PNCL 13:17
PROVIDERS: ATTEND Anesthesiology
DX: M51.16 Intervertebral disc disorders with radiculopathy, lumbar region (principal); M96.1 Postlaminectomy syndrome, not elsewhere classified; M47.26 Other spondylosis with radiculopathy, lumbar region; M47.817 Spondylosis without myelopathy or radiculopathy, lumbosacral region; Z79.82 Long term (current) use of aspirin; Z79.899 Other long term (current) drug therapy; Z88.8 Allergy status to other drugs, medicaments and biological substances
CPT/HCPCS: 64493; 64494; J1030; J1040; J3490; Q9965

== ENCOUNTER → 2021-10-11 | Outpatient (CLI) | payer OTHER, MEDICARE ==
[~2021-10-11] MED LIST changes: +DEXAMETHASONE PRES.FREE 10 MG/ML VIAL. ONE; +MAGN500C PO; -MAGN500C10 PO; +TIZA-75 PO; -methylPREDNISolone ACETATE 40 MG/ML VIAL. ONE; -methylPREDNISolone ACETATE 80 MG/ML VIAL. ONE
--- NOTE | 2021-10-11 16:05 | PDOC ---
Progress Note - Pain Clinic Date of Service: DOS: DATE: 10/11/21 TIME: 16:00 Diagnosis: Dx: Lumbar and lumbosacral spondylosis Lumbar degenerative disc disease with lumbar postlaminectomy syndrome History or Present Illness: HPI: 61-year-old male returns status post bilateral facet medial branch blocks most recent June 04 patient very well near undersign improvement he reports for about 3 to 4 months and the pain returning now in the low back right essentially equal to left patient also has secondary complaint of new pain which is in the inferior gluteus perirectal on the left side which is noticeable with sitting or with bowel habits. Patient reports no loss of continence but has a area of numbness in this region in the inferior left gluteus. Patient reports t he pain in the back however is his chief complaint and it is aching tight and shooting at times across the low back no radiation to lower extremities currently patient reports a 7 on scale 10 is worst 7 on average 5 its least and is a 5 today. Patient reports better with sitting lying down but wakes him from sleep about once a night on average patient usually apply heating pad or reposition to get back to sleep. Patient reports no bowel or bladder incontinence. Patient reports no loss of motor function lower extremities although reports he is walking favoring his left leg significantly. Physical Exam: VS: Blood pressure is 126/89 pulse 74 respiration 16 temperature 98.3 F PE: PHYSICAL EXAMINATION: GENERAL: The patient is awake, alert, oriented, appropriate, very pleasant in demeanor HEENT: Shows normocephalic, atraumatic. Extraocular movements are intact and symmetrical. Oral cavity: Mucous membranes moist and pink. Dentition is intact. NECK: Shows anterior throat supple without palpable lymphadenopathy noted. Swallow reflex symmetrical. CHEST: Shows normal on inspection. Breath sounds are clear bilaterally. HEART: Shows S1, S2 clear. No murmurs auscultated. ABDOMEN: Soft, nontender, nondistended. No palpable organomegaly is noted. BACK: Shows spine grossly in the midline. Normal-appearing cervical lordotic curvature. There is slightly increased thoracic kyphosis, some flattening of the lumbar lordotic curvature with well-healed midline surgical scar noted. Lumbar paraspinous muscles show symmetrical on inspection, on palpation shows some moderate tenderness diffusely throughout the upper, middle and lower distribution of the paraspinous muscles, but without specific trigger points, without radiation of pain. The patient has good rotational motion of the lumbar spine, both laterally as well as extension and flexion with significant tenderness with right lateral greater than left lateral rotation but present bilaterally also with axial loading and extension lumbar spine significant pain bilaterally better with forward flexion 45 degrees which is performed without significant difficulty or pain reported. EXTREMITIES: Lower extremities show deep tendon reflexes to in the patellar and tendo calcaneus tendons. Motor exam is 5 on a scale of 5 with right dorsiflexion, extension, quadriceps and hamstring flexion and 5/5 on the left. Peripheral pulses are 1+ posterior tibial. No peripheral edema is noted bilaterally. Lower extremities are warm and dry to touch, equal in color and appearance. SKIN: Shows warm and dry, good turgor. No edema. No sores, rashes or bruising throughout. Procedure: Procedure: Options discussed with patient. Patient's old chart was reviewed his current medication regimen updated current review of systems updated today as well. We will proceed with bilateral L4-5 and L5-S1 facet medial branch blocks today with fluoroscopic guidance. Risks were discussed including but not limited to: Blee ding, infection, possibility of epidural hematoma and subsequent neurological compromise, dural puncture, headaches, spinal cord and/or nerve damage, side effects of steroid medication, and poor results regarding pain control. Patient understands and wished to proceed. Patient will return to clinic in approximately 4 weeks for follow-up, was counseled as to return appointment, ac tivity level, and side effect to be aware of. Medication Injected: Med Injected: Under sterile prep and drape using C-arm fluoroscopic guidance AP and lateral and oblique views, bilateral L4-5 and L5-S1 facet joint MB's injections were performed, using 22-gauge quinke needles with stylette's x4,, medications injected: 20 mg dexamethasone +4 cc 0.25% bupivacaine +2 cc contrast. Condition at discharge is stable, patient tolerated the procedure well and no complications. Condition at Discharge: Condition at Discharge: Condition at discharge stable, patient tolerated the procedure well and had no complications. DANNY VAUGHN MD Oct 11, 2021 16:05
--- NOTE | 2021-10-11 16:06 | PDOC4 ---
Procedure Note: ICD 10 Code: ICD 10 Code: M4 7.16 M4 7.817 Procedure Note: Patient was consented for bilateral lumbar facet medial branch blocks with fluoroscopic guidance. Risks were discussed including but not limited to: Bleeding, infection, possibility of epidural hematoma and subsequent neurological compromise, dural puncture, headaches, spinal cord and/or nerve damage, side effects of steroid medication, and poor results regarding pain control. Patient understands and wished to proceed. Under sterile prep and drape using C-arm fluoroscopic guidance AP and lateral and oblique views, bilateral L4-5 and L5-S1 facet joint MB's injections were performed, using 22-gauge quinke needles with stylette's x4,, medications injected: 20 mg dexamethasone +4 cc 0.25% bupivacaine +2 cc contrast. Condition at discharge is stable, patient tolerated the procedure well and no complications. DANNY VAUGHN MD Oct 11, 2021 16:06
== END | disposition home or self-care (01) ==
LOC: PNCL 15:29
PROVIDERS: ATTEND Anesthesiology
DX: M47.816 Spondylosis without myelopathy or radiculopathy, lumbar region (principal); M47.817 Spondylosis without myelopathy or radiculopathy, lumbosacral region; M96.1 Postlaminectomy syndrome, not elsewhere classified; M51.36 Other intervertebral disc degeneration, lumbar region; Z79.82 Long term (current) use of aspirin; Z79.899 Other long term (current) drug therapy; Z88.8 Allergy status to other drugs, medicaments and biological substances
CPT/HCPCS: 64493; 64494; J1100; J3490; Q9965